=== PATIENT | male | born 1955 | race Caucasian/White ===

== ENCOUNTER 2021-01-10 16:48 | Emergency (ER) | payer BC ==
[2021-01-10] MEDS ORDERED: Diphtheria,Pertussis(Acell),Tetanus Vaccine 0.5 ML Syringe IM ONE (18:14)
--- NOTE | 2021-01-10 18:17 | EDM.PDOC ---
ED HPI GENERAL MEDICAL PROBLEM - General Chief Complaint: Laceration Stated Complaint: RT FOOT LITTLE TOE CUT Time Seen by Provider: 01/10/21 18:17 Source of Information: Reports: Patient, RN Notes Reviewed History Limitations: Reports: No Limitations - History of Present Illness INITIAL COMMENTS - FREE TEXT/NARRATIVE: Mohsen presents today for complaints of injury to right 5th toe. He states he struck his toe on edge of dog kennel. Partial avulsion with laceration to 5th toe web space. ROM intact, sensation intact. He denies any other injuries. He reports last tetanus n 2010. He denies fever, chills, nausea, vomiting, change in bowel/bladder function. He reports most recent A1C 6.0. Right Toe-Little Pain Score (Numeric/FACES): 6 - Related Data Allergies Allergy/AdvReac Type Severity Reaction Status Date / Time Sulfa (Sulfonamide Allergy Unknown Rash Unverified 01/10/21 20:50 Antibiotics) Home Meds: Home Meds Aspirin 325 mg PO DAILY 01/10/21 [History] Gabapentin [Neurontin] 300 mg PO TID 01/10/21 [History] Metoprolol Tartrate 25 mg PO BID 01/10/21 [History] Omeprazole 40 mg PO DAILY 01/10/21 [History] Triamterene/Hydrochlorothiazid [Triamterene-HCTZ 75-50 MG] 1 tab PO DAILY 01/10/21 [History] metFORMIN [Glucophage] 500 mg PO BIDMEALS 01/10/21 [History] Past Medical History HEENT History: Reports: Impaired Vision Cardiovascular History: Reports: Hypertension Musculoskeletal History: Reports: Fracture Other Musculoskeletal History: fingers toe Endocrine/Metabolic History: Reports: Diabetes, Type II, Obesity/BMI 30+ Dermatologic History: Reports: Psoriasis - Infectious Disease History Infectious Disease History: Reports: Chicken Pox, Measles, Mumps - Past Surgical History GI Surgical History: Reports: Cholecystectomy Musculoskeletal Surgical History: Reports: Knee Replacement Social & Family History - Tobacco Use Tobacco Use Status *Q: Never Tobacco User Second Hand Smoke Exposure: No - Caffeine Use Caffeine Use: Reports: Coffee, Soda - Recreational Drug Use Recreational Drug Use: No ED ROS GENERAL - Review of Systems Review Of Systems: See Below Constitutional: Reports: No Symptoms HEENT: Reports: No Symptoms Respiratory: Reports: No Symptoms Cardiovascular: Reports: No Symptoms Endocrine: Reports: No Symptoms GI/Abdominal: Reports: No Symptoms : Reports: No Symptoms Musculoskeletal: Reports: Foot Pain (laceration to right 5th toe space from dorsal to plantar surface) Skin: Reports: Wound Neurological: Reports: No Symptoms Psychiatric: Reports: No Symptoms Hematologic/Lymphatic: Reports: No Symptoms Immunologic: Reports: No Symptoms ED EXAM, SKIN/RASH Exam: See Below Exam Limited By: No Limitations General Appearance: Alert, WD/WN, No Apparent Distress Head: Atraumatic, Normocephalic Respiratory/Chest: No Respiratory Distress, Lungs Clear, Normal Breath Sounds, No Accessory Muscle Use, Chest Non-Tender. No: Crackles, Rales, Rhonchi, Wheezi ng Cardiovascular: Normal Peripheral Pulses, Regular Rate, Rhythm, No Edema, No Gallop, No Murmur, No Rub Peripheral Pulses: 4+: Dorsalis Pedis (L), Dorsalis Pedis (R) Extremities: Normal Range of Motion, Normal Capillary Refill, Other (laceration to 5th web space) Neurological: Alert, Oriented, Normal Cognition, Normal Gait, Normal Reflexes, No Motor/Sensory Deficits Psychiatric: Normal Affect, Normal Mood Skin: Warm, Other (Laceration right 5th web space, bleeding controlled.). No: Erythema Characteristics: Linear (laceration from dorsal to plantar surface) Lymphatic: No Adenopathy ED SKIN PROCEDURES - Laceration/Wound Repair Right Foot Appearance: Clean, Other (deep) Distal NVT: Neuro & Vascular Intact, Other (open fracture) Skin Prep: Saline Saline Irrigation (cc's): 2,000 Sterile Dressing Applied: Provider Tetanus Status Addressed: Yes Complications: No Progress/Comments: Per Dr. Schmid, wound not sutured closed. Wound irrigated, vaseline to laceration, gauze, kerlix, coban and walking boot applied. Dressing supplies and directions to patient. Patient tolerated well. Course - Vital Signs Last Recorded V/S: Last Vital Signs Temp 36.4 C 01/10/21 17:52 Pulse 76 01/10/21 17:52 Resp 16 01/10/21 17:52 BP 133/64 01/10/21 17:52 Pulse Ox 96 01/10/21 17:52 - Orders/Labs/Meds Orders: Active Orders 24 hr Category Date Time Status Toes Fifth Digit Rt T9 [CR] Stat Exams 01/10/21 18:24 Taken Meds: Medications Discontinued Medications Generic Name Dose Route Start Last Admin Trade Name Mariaa PRN Reason Stop Dose Admin Hydrocodone Bitart/Acetaminophen 1 tab 01/10/21 20:05 01/10/21 20:44 Acetaminophen/Hydrocodone 325-5 Mg Tab PO 01/10/21 20:06 1 tab ONETIME ONE Administration Bacitracin 1 dose 01/10/21 18:24 01/10/21 18:37 Bacitracin Oint 1 Gm U/D Packet TOP 01/10/21 18:25 1 dose ONETIME ONE Administration Ceftriaxone Sodium 2 gm 01/10/21 20:05 01/10/21 20:43 Ceftriaxone 1 Gm Vial IM 01/10/21 20:06 2 gm ONETIME ONE Administration Diphtheria/Tetanus/Acell Pertussis 0.5 ml 01/10/21 18:14 01/10/21 18:37 Diphtheria,Pertussis(Acell),Tetanus Vaccine 0.5 Ml Syringe IM 01/10/21 18:15 0.5 ml .ONCE ONE Administration Lidocaine HCl 20 ml 01/10/21 18:24 01/10/21 18:37 Lidocaine 1% 20 Ml Mdv INJECT 01/10/21 18:25 20 ml ONETIME ONE Administration Lidocaine HCl Confirm 01/10/21 20:37 01/10/21 20:45 Lidocaine 1% 5 Ml Sdv Administered 01/10/21 20:38 Not Given Dose 5 ml .ROUTE .K-MED ONE - Radiology Interpretation Free Text/Narrative:: X-ray right 5th toe wet read, reviewed, shows open displaced fracture proximal 5th phalanx. Images sent to [facility] for Dr. Schmid - podiatry to review. - Re-Assessments/Exams Free Text/Narrative Re-Assessment/Exam: 01/10/21 20:[address] Schmid podiatry, we will irrigate the wound, dress with xeroform or vaseline gauze, kerlix and place in walking boot. Augmentin 875mg PO BID for 14 days. Follow up with Dr. Schmid on for follow up. Patient provided education on signs of infection and worsening, he verbalizes understanding. Departure - Departure Time of Disposition: 21:00 Disposition: Home, Self-Care 01 Condition: Good Clinical Impression: Open fracture of fifth toe of right foot, Laceration of foot - Discharge Information *PRESCRIPTION DRUG MONITORING PROGRAM REVIEWED*: No *COPY OF PRESCRIPTION DRUG MONITORING REPORT IN PATIENT SPIKE: No Instructions: Toe Fracture Referrals: PCP,None [Primary Care Provider] - Forms: ED Department Discharge Additional Instructions: You have been evaluated and treated for an open, displaced fracture of the right 5th proximal phalanx. Keep the wound clean and dry. Change dressing daily with xeroform directly to the laceration, cover with gauze, wrap with kerlix then coban. Wear walking boot at all times. No submersion in any water. Take augmentin 875mg by mouth twice per day for 14 days. May take tylenol as needed for pain. For severe pain take hydrocodone 5/325mg by mouth up to three times a day for pain. Follow up with Dr. Schmid on WednesdayJanuary 13 for recheck of wound. Return at any time for any worsening, issues or concerns. Sepsis Event Note (ED) - Evaluation Sepsis Screening Result: No Definite Risk - Focused Exam Vital Signs: Vital Signs Temp Pulse Resp BP Pulse Ox 01/10/21 17:52 36.4 C 76 16 133/64 96 01/10/21 17:16 36.4 C 76 16 133/64 96 - My Orders Last 24 Hours: My Active Orders 01/10/21 18:24 Toes Fifth Digit Rt T9 [CR] Stat - Assessment/Plan Last 24 Hours: My Active Orders 01/10/21 18:24 Toes Fifth Digit Rt T9 [CR] Stat Assessment:: Open fracture of fifth toe of right foot Laceration foot Plan: Patient evaluated and treated for an open, displaced fracture of the right 5th proximal phalanx. Keep the wound clean and dry. Change dressing daily with xeroform directly to the laceration, cover with gauze, wrap with kerlix then coban. Wear walking boot at all times. No submersion in any water. Take augmentin 875mg by mouth twice per day for 14 days. May take tylenol as needed for pain. For severe pain take hydrocodone 5/325mg by mouth up to three times a day for pain. Follow up with Dr. Schmid on WednesdayJanuary 13 for recheck of wound. Return at any time for any worsening, issues or concerns.
[2021-01-10] MEDS ORDERED: Lidocaine 1% 20 ML MDV INJECT ONE (18:24)
[2021-01-10] MEDS ORDERED: Bacitracin Oint 1 GM U/D Packet TOP ONE (18:24)
[2021-01-10] MEDS ORDERED: cefTRIAXone 1 GM Vial IM ONE (20:05)
[2021-01-10] MEDS ORDERED: Acetaminophen/HYDROcodone 325-5 MG Tab PO ONE (20:05)
--- NOTE | 2021-01-13 09:16 | CR ---
Toes Fifth Digit Rt T9 CLINICAL HISTORY: Injury FINDINGS: There is a slightly displaced comminuted fracture of the fifth proximal phalanx. There is some osteoarthritis. IMPRESSION: Fracture fifth proximal phalanx Osteoarthritis
== END 2021-01-10 20:58 | disposition home or self-care (01) ==
LOC: JP.ED 16:48
DX: S92.511B Displaced fracture of proximal phalanx of right lesser toe(s), initial encounter for open fracture (principal); I10 Essential (primary) hypertension; E11.9 Type 2 diabetes mellitus without complications; E66.9 Obesity, unspecified; Z68.37 Body mass index [BMI] 37.0-37.9, adult; Z23 Encounter for immunization; Z88.2 Allergy status to sulfonamides; Z79.82 Long term (current) use of aspirin; Z79.84 Long term (current) use of oral hypoglycemic drugs; Z79.899 Other long term (current) drug therapy; W22.8XXA Striking against or struck by other objects, initial encounter
CPT/HCPCS: 73660; 90471; 90715; 96372; 99283; A9270; J0696

== ENCOUNTER 2022-05-25 06:47 | Day surgery (SDC) | payer OTHER ==
[2022-05-25] MEDS ORDERED: Lactated Ringers 1,000 ML IV SCH (07:00)
[2022-05-25] MEDS ORDERED: Propofol 200 MG/20 ML SDV ONE (07:16)
[2022-05-25] MEDS ORDERED: Midazolam 1 MG/ML 2 ML SDV ONE (07:16)
[2022-05-25] MEDS ORDERED: fentaNYL 50 MCG/ML SDV ONE (07:16)
== END 2022-05-25 09:19 | disposition home or self-care (01) ==
LOC: JP.SDS 06:47
PROVIDERS: ATTEND Student in an Organized Health Care Education/Training Program
DX: K57.30 Diverticulosis of large intestine without perforation or abscess without bleeding (principal); I10 Essential (primary) hypertension; I48.91 Unspecified atrial fibrillation; K21.9 Gastro-esophageal reflux disease without esophagitis; E11.9 Type 2 diabetes mellitus without complications; E66.9 Obesity, unspecified; J45.909 Unspecified asthma, uncomplicated; Z79.899 Other long term (current) drug therapy; Z88.2 Allergy status to sulfonamides
CPT/HCPCS: 36415; 45378; 85610; J2250; J2704; J3010; J7120

== ENCOUNTER 2022-07-15 06:51 | Day surgery (SDC) | payer OTHER ==
[2022-07-15] MEDS ORDERED: fentaNYL 50 MCG/ML SDV ONE (07:13)
[2022-07-15] MEDS ORDERED: Propofol 200 MG/20 ML SDV ONE (07:13)
[2022-07-15] MEDS ORDERED: Lactated Ringers 1,000 ML IV SCH (08:00)
== END 2022-07-15 09:25 | disposition home or self-care (01) ==
LOC: JP.SDS 06:51
PROVIDERS: ATTEND Student in an Organized Health Care Education/Training Program
DX: K21.00 Gastro-esophageal reflux disease with esophagitis, without bleeding (principal); K29.70 Gastritis, unspecified, without bleeding; K44.9 Diaphragmatic hernia without obstruction or gangrene; K21.9 Gastro-esophageal reflux disease without esophagitis; E11.9 Type 2 diabetes mellitus without complications; Z79.899 Other long term (current) drug therapy; Z88.2 Allergy status to sulfonamides
CPT/HCPCS: 36415; 43239; 85610; J2704; J3010; J7120; 88305

== ENCOUNTER 2022-11-03 12:14 | Emergency (ER) | payer OTHER ==
[2022-11-03] MEDS ORDERED: fentaNYL 100 MCG/2 ML SDV IM ONE (13:03)
[2022-11-03] MEDS ORDERED: Bacitracin Oint 1 GM U/D Packet TOP ONE (13:27)
== END 2022-11-03 14:23 | disposition home or self-care (01) ==
LOC: JP.ED 12:14
DX: S52.592A Other fractures of lower end of left radius, initial encounter for closed fracture (principal); S00.01XA Abrasion of scalp, initial encounter; S09.90XA Unspecified injury of head, initial encounter; I10 Essential (primary) hypertension; E11.9 Type 2 diabetes mellitus without complications; E66.9 Obesity, unspecified; Z68.36 Body mass index [BMI] 36.0-36.9, adult; Z88.2 Allergy status to sulfonamides; Z79.899 Other long term (current) drug therapy; Z79.84 Long term (current) use of oral hypoglycemic drugs; Z79.01 Long term (current) use of anticoagulants; Z86.16 Personal history of COVID-19; Z90.49 Acquired absence of other specified parts of digestive tract; W11.XXXA Fall on and from ladder, initial encounter
CPT/HCPCS: 36415; 70450; 73110; 85610; 96372; 99284; J3010

== ENCOUNTER 2023-10-06 15:25 | Inpatient (IN) | payer OTHER ==
[2023-10-06 16:23] LABS: BASOPHILS ABSOLUTE AUTO 0.04 K/uL (0.00-0.10); BASOPHILS PERCENT AUTO 0.6 % (0.1-1.3); EOSINOPHILS ABSOLUTE AUTO 0.19 K/uL (0.00-0.40); EOSINOPHILS PERCENT AUTO 2.8 % (0.0-5.4); HEMOGLOBIN 13.9 g/dL (12.9-16.9); IMMATURE GRAN ABSOLUTE AUTO 0.01 K/uL (0.00-0.23); IMMATURE GRAN PERCENT AUTO 0.1 % (0.0-0.7); LYMPHOCYTES ABSOLUTE AUTO 1.36 K/uL (0.8-3.3); LYMPHOCYTES PERCENT AUTO 20.3 % (11.4-47.7); MEAN CORPUSCULAR HGB CONC 35.6 g/dL (31.6-35.5); MEAN CORPUSCULAR VOLUME 89.7 fL (81.4-99.0); NEUTROPHILS ABSOLUTE AUTO 4.69 K/uL (1.0-7.6); NEUTROPHILS PERCENT AUTO 70.2 % (40.0-78.1); PLATELET COUNT,PLT 170 K/uL (130-375); RED BLOOD CELL COUNT 4.35 M/uL (4.14-5.76); WHITE BLOOD CELL COUNT,WBC 6.7 K/uL (3.2-11.0)
[2023-10-06 16:45] LABS: A/G RATIO 1.2 (1.2-2.2); ALANINE AMINOTRANSFERASE,ALT 22 U/L (12-78); ALBUMIN 3.5 g/dL (3.4-5.0); ALKALINE PHOSPHATASE 119 U/L (46-116); ASPARTATE AMNIOTRANSFERASE,AST 21 U/L (15-37); BILIRUBIN TOTAL 0.8 mg/dL (0.2-1.0); BLOOD UREA NITROGEN,BUN 23 mg/dL (7-18); CALCIUM 8.8 mg/dL (8.5-10.1); CARBON DIOXIDE,CO2 30 mmol/L (21-32); CHLORIDE,CL 101 mmol/L (100-108); CREATININE 1.1 mg/dL (0.8-1.3); ESTIMATED GFR 73 mL/min (>60); GLUCOSE RANDOM 166 mg/dL (74-106); INR 2.6; POTASSIUM,K 3.6 mmol/L (3.6-5.2); PROTEIN TOTAL,TP 6.5 g/dL (6.4-8.2); PTT,PARTIAL THROMBOPLSTIN TIME 34.8 sec (21.8-27.3); SODIUM,NA 139 mmol/L (140-148)
[2023-10-06 16:47] LABS: ANION GAP 11.6 mmol/L (5.0-14.0)
[2023-10-06 17:14] LABS: APPEARANCE,URINE CLEAR (CLEAR); BILIRUBIN,URINE NEGATIVE (NEGATIVE); COLOR,URINE YELLOW (YELLOW); GLUCOSE,URINE NEGATIVE (NEGATIVE); KETONES,URINE NEGATIVE (NEGATIVE); LEUKOCYTE ESTERASE,URINE NEGATIVE (NEGATIVE); NITRITE,URINE NEGATIVE (NEGATIVE); OCCULT BLOOD,URINE NEGATIVE (NEGATIVE); PH,URINE 6.5 (5.0-8.0); PROTEIN,URINE NEGATIVE (NEGATIVE); UROBILINOGEN,URINE 0.2 EU/dL (0.2-1.0)
[2023-10-06 17:21] LABS: AMORPHOUS SEDIMENT,URINE NOT SEEN; BACTERIA,URINE NOT SEEN; EPITHELIAL CELLS,URINE NOT SEEN; MUCUS,URINE NOT SEEN; RBC,URINE 0-5 (0-5); WBC,URINE 0-5 (0-5)
[2023-10-06] MEDS: Phytonadione 10 MG in Sodium Chloride 0.9% 50 ML IV ONE (19:18)
[2023-10-06] MEDS: Pantoprazole 40 MG Vial IVPUSH ONE (19:19)
[2023-10-06 19:58] LABS: CORONAVIRUS COVID-19 NAA NEGATIVE (NEGATIVE); INFLUENZA A NAA NEGATIVE (NEGATIVE); INFLUENZA B NAA NEGATIVE (NEGATIVE); RESPIRATORY SYNCYTIAL VIR NAA NEGATIVE (NEGATIVE)
[2023-10-06] MEDS ORDERED: Melatonin 3 MG Tab PO PRN (20:57)
[2023-10-06] MEDS ORDERED: Acetaminophen 325 MG Tab PO PRN (20:57)
[2023-10-06] MEDS ORDERED: Ondansetron 4 MG/2 ML SDV IV PRN (20:57)
[2023-10-06] MEDS ORDERED: Magnesium Hydroxide 400 MG/5 ML Susp 30 ML Cup PO PRN (20:57)
[2023-10-06] MEDS ORDERED: Sodium Chloride 0.9% 1,000 ML IV SCH (20:57)
[2023-10-06] MEDS ORDERED: Ondansetron 4 MG Tab.DIS PO PRN (20:57)
[2023-10-06] MEDS ORDERED: Sennosides/Docusate Sodium 50-8.6 MG Tab PO PRN (20:57)
[2023-10-07] MEDS: Metoprolol Tartrate 25 MG Tab PO SCH (00:42)
[2023-10-07] MEDS: Gabapentin 300 MG Cap PO SCH (00:42)
[2023-10-07] MEDS: Metoprolol Tartrate 25 MG Tab ONE (00:42)
[2023-10-07 05:09] LABS: HEMATOCRIT 33.6 % (38.4-49.7); HEMOGLOBIN 11.7 g/dL (12.9-16.9); MEAN CORPUSCULAR HEMOGLOBIN 31.6 pg (31.6-35.5); MEAN CORPUSCULAR HGB CONC 34.8 g/dL (31.6-35.5); MEAN CORPUSCULAR VOLUME 90.8 fL (81.4-99.0); RED BLOOD CELL COUNT 3.7 M/uL (4.14-5.76); WHITE BLOOD CELL COUNT,WBC 5.5 K/uL (3.2-11.0)
[2023-10-07 05:19] LABS: CALCIUM 8.3 mg/dL (8.5-10.1); EST CRCL DRUG DOSING (CG) 75.3 mL/min; POTASSIUM,K 3.5 mmol/L (3.6-5.2)
[2023-10-07 05:51] LABS: ANION GAP 11.5 mmol/L (5.0-14.0)
[2023-10-07] MEDS: Pantoprazole 40 MG Vial IV SCH (07:52)
[2023-10-07] MEDS: metFORMIN 500 MG Tab PO SCH (08:04)
[2023-10-07] MEDS: Hydrochlorothiazide/Triamterene 25-37.5 Tab PO SCH (08:05)
[2023-10-07 08:42] LABS: INR 1.3; PROTHROMBIN TIME 12.8 sec (9.2-10.6)
[2023-10-07] MEDS: Bisacodyl 5 MG Tab PO ONE (14:29)
[2023-10-07] MEDS: Polyethylene Glycol 3350 Powder 238 GM Bot PO ONE (14:55)
[2023-10-08 04:31] LABS: HEMATOCRIT 33.3 % (38.4-49.7); HEMOGLOBIN 11.8 g/dL (12.9-16.9); MEAN CORPUSCULAR HEMOGLOBIN 32.1 pg (31.6-35.5); MEAN CORPUSCULAR HGB CONC 35.4 g/dL (31.6-35.5); MEAN CORPUSCULAR VOLUME 90.5 fL (81.4-99.0); RED BLOOD CELL COUNT 3.68 M/uL (4.14-5.76); WHITE BLOOD CELL COUNT,WBC 6.3 K/uL (3.2-11.0)
[2023-10-08 04:44] LABS: INR 1.2; PROTHROMBIN TIME 11.9 sec (9.2-10.6)
[2023-10-08 04:50] LABS: CALCIUM 8.7 mg/dL (8.5-10.1); CREATININE 0.9 mg/dL (0.8-1.3); EST CRCL DRUG DOSING (CG) 83.67 mL/min; MAGNESIUM 1.3 mg/dL (1.8-2.4); PHOSPHORUS 3.1 mg/dL (2.5-4.9); POTASSIUM,K 3.4 mmol/L (3.6-5.2)
[2023-10-08 04:59] LABS: ANION GAP 11.4 mmol/L (5.0-14.0)
[2023-10-08] MEDS: Magnesium Sulfate/Water 2 GM in Premix Bag 1 BAG IV ONE (08:31)
[2023-10-08] MEDS: Potassium Chloride 10 MEQ in Premix Bag 1 BAG IV SCH (08:39)
[2023-10-08] MEDS: Sodium Chloride 0.9% 0 ML ONE (09:23)
[2023-10-08] MEDS ORDERED: Propofol 200 MG/20 ML SDV ONE (10:48)
[2023-10-08] MEDS ORDERED: Midazolam 1 MG/ML 2 ML SDV ONE (10:48)
[2023-10-08] MEDS ORDERED: fentaNYL 50 MCG/ML SDV ONE (10:48)
== END 2023-10-08 16:30 | disposition home or self-care (01) | DRG 378 ==
LOC: JP.ED 15:25 → JP.MS 19:32
PROVIDERS: ADMIT Registered Nurse; ATTEND Internal Medicine
PROC: 0DB78ZX Excision of Stomach, Pylorus, Via Natural or Artificial Opening Endoscopic, Diagnostic (ICD-10-PCS; principal; 2023-10-08 10:00)
PROC: 0DJD8ZZ Inspection of Lower Intestinal Tract, Via Natural or Artificial Opening Endoscopic (ICD-10-PCS; 2023-10-08 10:00)
DX: K57.91 Diverticulosis of intestine, part unspecified, without perforation or abscess with bleeding (principal); D62 Acute posthemorrhagic anemia; I48.11 Longstanding persistent atrial fibrillation; K44.9 Diaphragmatic hernia without obstruction or gangrene; K21.9 Gastro-esophageal reflux disease without esophagitis; I10 Essential (primary) hypertension; E66.9 Obesity, unspecified; E11.42 Type 2 diabetes mellitus with diabetic polyneuropathy; J45.909 Unspecified asthma, uncomplicated; Z88.2 Allergy status to sulfonamides; Z79.01 Long term (current) use of anticoagulants; Z86.16 Personal history of COVID-19; Z79.84 Long term (current) use of oral hypoglycemic drugs; Z90.49 Acquired absence of other specified parts of digestive tract; Z68.37 Body mass index [BMI] 37.0-37.9, adult; Z96.659 Presence of unspecified artificial knee joint; Z79.899 Other long term (current) drug therapy
CPT/HCPCS: 0241U; 36415; 36430; 80048; 80053; 81001; 83735; 84100; 85018; 85025; 85027; 85610; 85730; 86850; 86900; 86901; 86920; 86922; 88305; 93005; 93010; 96374; 96375; 99222; 99232; 99238; 99284-25; 99285; A9270-GY; C9113; J2250; J2704; J3010; J3430; J3475; J3480; J3490; P9017